=== PATIENT | male | born 1985 | race African-American/Black ===

== ENCOUNTER 2023-06-01 09:50 | Emergency (ER) | payer OTHER ==
[~2023-06-01] VITALS: Ht 167.6 cm; Wt 72.7 kg
[2023-06-01 13:48] VITALS: BP 141/94; TEMP 98.2; O2SAT 98
== END 2023-06-01 13:53 | disposition home or self-care (01) ==
LOC: EDBD 09:50 → M ED 09:50
DX: F32.A Depression, unspecified (principal); M54.9 Dorsalgia, unspecified; R51.9 Headache, unspecified; Z91.040 Latex allergy status; F41.9 Anxiety disorder, unspecified